=== PATIENT | male | born 1995 | race Caucasian/White ===

== ENCOUNTER 2020-11-10 22:33 | Emergency (ER) | payer OTHER ==
[~2020-11-10] VITALS: Ht 172.7 cm; Wt 67.2 kg
[2020-11-10 22:38] VITALS: BP 133/96
[2020-11-10] MEDS ORDERED: LIDOCAINE-MPF 1%, 5ML ONE (23:08)
--- NOTE | 2020-11-10 23:20 | NUR ---
LAC ON LEFT INDEX FINGER CLEANSED WITH 100ML NS. PT TOLERATED WELL.
--- NOTE | 2020-11-10 23:29 | NUR ---
ERP AT BEDSIDE FOR LAC REPAIR
[2020-11-10] MEDS ORDERED: LIDOCAINE-MPF 1%, 5ML INFIL ONE (23:30)
[2020-11-10] MEDS ORDERED: NEOSPORIN OINT. PKT 1 PACKET ONE (23:40)
--- NOTE | 2020-11-10 23:48 | NUR ---
Patient given discharge instructions and they have confirmed that they understand the instructions. Patient ambulatory with steady gait.
[2020-11-11] MEDS ORDERED: LIDOCAINE-MPF 2% ,5ML ONE (01:34)
== END 2020-11-10 23:50 | disposition home or self-care (01) ==
LOC: ED 22:57
DX: S61.210A Laceration without foreign body of right index finger without damage to nail, initial encounter (principal); W26.8XXA Contact with other sharp object(s), not elsewhere classified, initial encounter; Y93.89 Activity, other specified; Y92.009 Unspecified place in unspecified non-institutional (private) residence as the place of occurrence of the external cause; Y99.8 Other external cause status
CPT/HCPCS: 12041; 99284